=== PATIENT | female | born 1985 | race Caucasian/White ===

== ENCOUNTER 2020-07-06 17:42 | Inpatient (IN) | payer BC ==
[2020-07-06] MEDS ORDERED: LABETALOL 5 MG/ML VIAL MDV IVP PRN ×3 (18:12)
[2020-07-06] MEDS ORDERED: hydrALAZINE HCL 20 MG/ML 1 ML VIAL IVP PRN (18:12)
[2020-07-06 18:35] LABS: Basophils % (A) 0 %; Eosinophils # (A) 0.1 k/uL (0-0.7); Eosinophils % (A) 1 %; HCT 38.2 % (34.0-46.0); HGB 13.3 gm/dL (11.4-16.0); Lymphocytes # (A) 1.9 k/uL (1.0-4.8); Lymphocytes % (A) 20 %; MCH 29.1 pg (25.0-35.0); MCHC 34.9 g/dL (31.0-37.0); MCV 83.5 fL (80.0-100.0); Mean Platelet Volume 8.8; Monocytes # (A) 0.5 k/uL (0-1.0); Monocytes % (A) 5 %; Neutrophils # (A) 6.7 k/uL (1.3-7.7); Neutrophils % (A) 72 %; Platelet Count 199 k/uL (150-450); RBC 4.58 m/uL (3.80-5.40); RDW 13.9 % (11.5-15.5); WBC 9.3 k/uL (3.8-10.6)
[2020-07-06 18:49] LABS: ALT 34 U/L (4-34); AST 38 U/L (14-36); African American GFR (CKD) >90 (>60 ml/min/1.73 sqM); Blood Urea Nitrogen 13 mg/dL (7-17); LDH 414 U/L (313-618); Non-African American GFR(CKD) >90 (>60 ml/min/1.73 sqM); Uric Acid 7.2 mg/dL (3.7-7.4)
[2020-07-06] MEDS ORDERED: CLINDAMYCIN 900 MG in DEXTROSE 5% IN WATER 50 ML IVPB STA ×2 (19:20)
[2020-07-06] MEDS ORDERED: OXYTOCIN 10 UNIT/ML 1 ML VIAL IM PRN (19:20)
[2020-07-06] MEDS ORDERED: TERBUTALINE 1 MG/ML VIAL SQ PRN (19:20)
[2020-07-06] MEDS ORDERED: CARBOPROST TROMETHAMINE 250 MCG/ML 1 ML AMP IM PRN (19:20)
[2020-07-06] MEDS ORDERED: LIDOCAINE 0.5% (PF) 5 MG/ML (50 ML SDV) SQ PRN (19:20)
[2020-07-06] MEDS ORDERED: METHYLERGONOVINE 0.2 MG/ML 1 ML AMP IM PRN (19:20)
[2020-07-06 19:22] LABS: Appearance,Urine Clear (Clear); Bilirubin,Urine Negative (Negative); Blood,Urine Trace (Negative); Color,Urine Light Yellow; Glucose,Urine (UA) Negative (Negative); Ketones,Urine Negative (Negative); Leukocyte Esterase,Urine Negative (Negative); Mucus,Urine Rare /hpf; Nitrite,Urine Negative (Negative); PH, Urine 5.5 (5.0-8.0); Protein,Urine Negative (Negative); Specific Gravity,Urine 1.008 (1.001-1.035); Urobilinogen,Urine <2.0 mg/dL (<2.0); WBC,Urine 1 /hpf (0-5)
[2020-07-06 19:30] LABS: Creatinine,Urine Random 40.4 mg/dL; Protein/Creatinine Ratio,Urine 0.594
--- NOTE | 2020-07-06 19:30 | US ---
EXAMINATION TYPE: US OB >= 14 wk fetus DATE OF EXAM: 07/06/2020 COMPARISON: None CLINICAL HISTORY: vaginal bleeding Vaginal bleeding. . TECHNIQUE: Transabdominal (TA). No TV to be performed per VIOLET Gregg. GESTATIONAL AGE / DATING Physician Established: (35 weeks/4 days) EDC: 08/06/2020 Dates by LMP: Unknown Dates by First Scan: This is first scan at this facility. Dates by Current Scan: (35 weeks/1 day) EDC: 08/09/2020 SURVEY IUP: Single PLACENTA: Posterior PREVIA: No Previa ANTHONY: 17.7 cm Upper limits of normal for our hospital standards. CERVICAL LENGTH (transabdominal: norm > 3.0cm): 3.57 cm Limited visibility. BIOMETRY PRESENTATION: Vertex LIE: Longitudinal BPD: 8.83 cm 35 weeks / 5 days HC: 31.94 cm 36 weeks / 0 days AC: 31.61 cm 35 weeks / 4 days FL: 6.84 cm 35 weeks / 1 day ESTIMATED WEIGHT IN GRAMS: 2693 grams ESTIMATED WEIGHT IN LBS/OZ: 5 lbs. 15 oz. WEIGHT PERCENTAGE BASED ON ESTABLISHED DATES: 46.8% HC/AC: 1.01 Normal FL/AC: 21.65 Normal HEART RATE: 135 bpm RHYTHM: Normal IMPRESSION: The ultrasound gestational age is 35 weeks and 1 day. No complicating process seen.
--- NOTE | 2020-07-06 20:43 | P.HPOB ---
History of Present Illness H&P Date: 07/06/20 Chief Complaint: Contractions, vaginal bleeding This is a 35-year-old female 1 para 0 with an estimated date of confinement of 08/06/2020, estimated gestational age of 35-4/7 weeks, who presented to labor and delivery with complaints of contractions since approximately 7 AM this morning. She stated when she woke up she felt a gush of what her underwear but then she did not have anything further after that. She was at the office today for nonstress test and was feeling some contractions but denied any leaking at that time. She was advised to wear a pad and if her pad was wet, to come to labor and delivery. This evening she noticed some bright red blood when she was wiping and did have some on a pad. She therefore came to labor and delivery for evaluation. She denied any headaches, blurry vision, or epigastric pain. She denies any swelling. course has been uncomplicated up until this point. She was getting nonstress tests for advanced maternal age. Ultrasound done in triage did show vertex presentation with an ANTHONY of 17. Amnisure was positive but there was blood noted on exam. On arrival to triage she had severely elevated blood pressures that were fluctuating up and down. Her initial blood pressure was 183/114. She was given 2 doses of labetalol her protocol in triage. Her blood pressures have come down with the 2 doses at 20 and 40 mg. Labs showed elevated protein to creatinine ratio at 0.59. All other labs are essentially normal other than a very mildly elevated AST. labs: Pap smear-within normal limits GC/Chlamydia/Trichomonas-negative Hepatitis B surface antigen-negative RPR-nonreactive Rubella-nonimmune Blood type-O+ Antibody screen-negative HIV-nonreactive Hemoglobin-12.1 [id number] normal limits MSAFP-negative One hour Glucola-166, 3 hour Glucola-within normal limits Obstetrical history: . Gynecologic history: No history of sexually transmitted diseases Social history: She is . 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 Review of Systems Constitutional: Denies chills, Denies fever Eyes: denies blurred vision, denies pain Ears, nose, mouth and throat: Denies headache, Denies sore throat Cardiovascular: Denies chest pain, Denies shortness of breath Respiratory: Denies cough Gastrointestinal: Reports abdominal pain Genitourinary: Reports pelvic pain, Reports Musculoskeletal: Reports low back pain Integumentary: Denies pruritus, Denies rash Neurological: Denies numbness, Denies weakness Psychiatric: Denies anxiety, Denies depression Past Medical History Past Medical History: No Reported History History of Any Multi-Drug Resistant Organisms: None Reported Additional Past Surgical History / Comment(s): [place] teeth Past Anesthesia/Blood Transfusion Reactions: No Reported Reaction Past Psychological History: No Psychological Hx Reported Smoking Status: Never smoker Past Alcohol Use History: None Reported Past Drug Use History: None Reported - Past Family History Mother Family Medical History: Hyperlipidemia, Hypertension Medications and Allergies Home Medications Medication Instructions Recorded Confirmed Type Pnv No.95/Ferrous Fum/Folic AC 1 tab PO DAILY 07/06/20 07/06/20 History [ Multivitamin Tablet] Allergies Allergy/AdvReac Type Severity Reaction Status Date / Time No Known Allergies Allergy Verified 07/06/20 18:10 Exam Osteopathic Statement: *. No significant issues noted on an osteopathic structural exam other than those noted in the History and Physical/Consult. Vital Signs Temp Pulse Resp BP 07/06/20 19:50 97.0 F L 67 16 150/90 07/06/20 17:42 97.3 F L 71 16 183/114 Intake and Output 07/06/20 07/06/20 07/06/20 06:59 14:59 22:59 Output Total 150 Balance -150 Output: Urine 150 Uretheral (Miles) 150 Other: Weight 92.986 kg HEENT: Within normal limits Heart: Regular rate and rhythm Lungs: Clear to auscultation bilaterally Abdomen: heart tones: Reactive, category 1 Contractions: Every 2-3 minutes Cervix: In triage she was noted to be 1 cm/100%/-2 station with a bulging bag and some bloody show. Currently she is 3-4 cm/100%/-2 station. Artificial rupture of membranes is carried out with clear fluid noted. Extremities: Negative Homans Results Result Diagrams: 07/06/20 18:15 07/06/20 18:15 Abnormal Lab Results - Last 24 Hours (Table) 07/06/20 07/06/20 Range/Units 18:15 18:25 AST 38 H (14-36) U/L Urine Blood Trace H (Negative) Urine Mucus Rare H (None) /hpf Assessment and Plan (1) 35 weeks gestation of Current Visit: Yes Status: Acute Code(s): Z3A.35 - 35 WEEKS GESTATION OF SNOMED Code(s): 04591019 (2) Pre-eclampsia, severe, third trimester Current Visit: Yes Status: Acute Code(s): O14.13 - SEVERE PRE-ECLAMPSIA, THIRD TRIMESTER SNOMED Code(s): 70431485 Plan: Admission for preeclampsia with severe features. Antibiotic prophylaxis for unknown group B streptococcus. Expectant management due to current active labor. Epidural anesthesia for pain control. We'll continue to monitor blood pressures closely and treat as needed. We'll plan to start magnesium sulfate s eizure prophylaxis immediately after delivery unless it is needed prior to delivery so as not to stall labor. Patient is aware that baby will need to go to level I nursery for observation due to prematurity. All her questions were answered. Both her and her are agreeable to this plan.
[2020-07-06] MEDS ORDERED: ROPIVACAINE 100 MG, fentaNYL (PF). 200 MCG in SODIUM CHLORIDE 0.9% 76 ML EPIDURAL ONE (20:52)
[2020-07-06] MEDS ORDERED: CALCIUM GLUCONATE 1 GM/10 ML VIAL IV PRN (21:17)
[2020-07-06] MEDS ORDERED: MAGNESIUM SULFATE GM 6 GM in SODIUM CHLORIDE 0.9% 100 ML IVPB ONE (21:30)
[2020-07-06] MEDS: MAGNESIUM SULFATE-WATER PMX 20 GM in WATER FOR INJECTION 1 500ML.BAG IV SCH (21:55)
[2020-07-07] MEDS ORDERED: CLINDAMYCIN 900 MG in DEXTROSE 5% IN WATER 50 ML IVPB SCH ×2 (03:30)
--- NOTE | 2020-07-07 04:13 | P.PROBDLV ---
Vaginal Delivery Note - . Vaginal Delivery Note: She did receive one further dose of labetalol at 80 mg. She was also started on magnesium sulfate seizure prophylaxis during labor due to labile blood pressures. Once reaching complete, she began pushing. She pushed for approximately 1 hour and 's head came to a crown. With one further push, the infant's head delivered across the perineum in a straight occiput posterior lie. At this point she was instructed to stop pushing. Nuchal cord 3 was doubly clamped and cut and removed around the infant's head. There was also a cord around the shoulder that was reduced. was then given to awaiting nursing staff for evaluation. A viable male infant was noted with scores of 3 at 1 minute 6 at 5 minutes and 7 at 10 minutes. Infant weight is 5 lbs. 13 oz. is taken to level I nursery for evaluation. Uterus contracted fairly well after oxytocin was given and uterine massage was carried out. Her bladder was also drained for 350 mL of clear urine. Inspection of the perineum revealed a second-degree perineal laceration. This area was anesthetized with 1% lidocaine and then sutured with 3-0 and 2-0 Vicryl suture in the usual multilayer fashion. Estimated blood loss is approximately 300 mL's. Mother is in stable condition and infant is in guarded condition in level I nursery. Mother will be continued on magnesium sulfate seizure prophylaxis for approximately 24 hours.
[2020-07-07] MEDS ORDERED: ZOLPIDEM 5 MG TAB PO PRN (04:14)
[2020-07-07] MEDS ORDERED: LANOLIN CREAM 5 GM TUBE TOPICAL PRN (04:14)
[2020-07-07] MEDS ORDERED: diphenhydrAMINE 50 MG CAP PO PRN (04:14)
[2020-07-07] MEDS ORDERED: SIMETHICONE 80 MG CHEWABLE PO PRN (04:14)
[2020-07-07] MEDS ORDERED: diphenhydrAMINE 50 MG/ML 1 ML VIAL IVP PRN ×2 (04:14)
[2020-07-07] MEDS ORDERED: ACETAMINOPHEN TAB 325 MG TAB PO PRN (04:14)
[2020-07-07] MEDS ORDERED: HYDROCORTISONE 2.5% RECTAL CREAM 30 GM TUBE RECTAL PRN (04:14)
[2020-07-07] MEDS ORDERED: OXYTOCIN 30 UNITS/500 ML NS 30 UNIT in SALINE 1 500ML.BAG IV SCH (04:14)
[2020-07-07] MEDS ORDERED: diphenhydrAMINE 25 MG CAP PO PRN (04:14)
[2020-07-07] MEDS ORDERED: BENZOCAINE/MENTHOL SPRAY 1 GM/SPRAY AEROSOL TOPICAL PRN (04:14)
[2020-07-07] MEDS ORDERED: MEASLES-MUMPS-RUBELLA VACC/PF 12,500 UNIT/0.5 ML VIAL SQ ONE (04:14)
[2020-07-07] MEDS: IBUPROFEN 600 MG TAB PO SCH ×3 (04:36→17:16)
[2020-07-07] MEDS: SENNOSIDES-DOCUSATE SODIUM 1 EACH TAB PO SCH ×2 (07:28→19:19)
[2020-07-07] MEDS: PRENATAL VIT-IRON-FOLIC ACID 1 EACH CAP PO SCH (07:29)
--- NOTE | 2020-07-07 07:35 | P.MSEPDOC ---
Presenting Problems - Arrival Data Date of Arrival on Unit: 07/06/20 Time of Arrival on Unit: 19:14 Mode of Transport: Portable - Complaint OB-Reason for Admission/Chief Complaint: Possible Onset of Labor, Vaginal Bleeding Medical History - Information : 1 Para: 0 Term: 0 : 0 Abortions: Spontaneous or Elective: 0 Number of Living Children: 0 - Gestational Age Gestational Age by KUMAR (wks/days): 35 Weeks and 5 Days Review of Systems - Review of Systems Constitutional: No problems Breast: No problems ENT: No problems Cardiovascular: No problems Respiratory: No problems Gastrointestinal: No problems Genitourinary: No problems Musculoskeletal: No problems Neurological: No problems Skin: No problems Vital Signs - Temperature Temperature: 97.3 F Temperature Source: Temporal Artery Scan - Pulse Right Sitting Pulse Rate: 77 Pulse Assessment Method: Automatic Cuff - Respirations Respiratory Rate: 16 Oxygen Delivery Method: Room Air O2 Sat by Pulse Oximetry: 97 - Blood Pressure Right Arm Blood Pressure: 127/71 Blood Pressure Mean: 89 Blood Pressure Source: Automatic Cuff Medical Screen Scoring (Pre) - Cervical Exam Dilation: 1-3 cm = 1 Effacement: More than 50% = 2 Membranes: Intact - Uterine Contractions Frequency: < 36 weeks = 6 Duration: > 40 seconds = 2 - Maternal Vital Signs Maternal Temperature: N/A Maternal Blood Pressure: >159/109 = 8 Signs of Preeclampsia: N/A Maternal Respirations: N/A - Maternal Trauma Maternal Trauma: N/A - Assessment - Baby A Baseline FHR: 125 Heart Rate - NICHD Category: Category I (Normal) = 0 NST: Reactive Position: N/A Station: N/A - Total Score - Baby A Total Score - Baby A: 19 - Total Score - Baby B Total Score - Baby B: 19 - Total Score - Baby C Total Score - Baby C: 19 - Level of Risk - Baby A Level of Risk - Baby A: High (10+) - Level of Risk - Baby B Level of Risk - Baby B: High (10+) - Level of Risk - Baby C Level of Risk - Baby C: High (10+) Physician Notification (Pre) - Physician Notified Physician Notified Date: 07/06/20 Physician Notified Time: 19:14 New Order Received: Yes (admit for labor) Disposition - Disposition OB Disposition: Admit, LDRP Suite I agree with the RN Medical Screening Exam: Yes Case reviewed; plan agreed upon as documented in EMR&OBIX.: Yes Diagnosis: UNSPECIFIED MATERNAL HYPERTENSION, THIRD TRIMESTER
[2020-07-07] MEDS: MAGNESIUM SULFATE-WATER PMX 20 GM in WATER FOR INJECTION 1 500ML.BAG IV SCH ×2 (08:06→18:16)
[2020-07-07] MEDS: LACTATED RINGERS 1,000 ML IV SCH ×3 (08:07→18:29)
[2020-07-07 08:20] LABS: Basophils % (A) 0 %; Eosinophils % (A) 0 %; HCT 35.9 % (34.0-46.0); HGB 12.4 gm/dL (11.4-16.0); Lymphocytes # (A) 1.2 k/uL (1.0-4.8); Lymphocytes % (A) 6 %; MCH 29.5 pg (25.0-35.0); MCHC 34.7 g/dL (31.0-37.0); MCV 85.1 fL (80.0-100.0); Mean Platelet Volume 8.4; Monocytes # (A) 0.5 k/uL (0-1.0); Monocytes % (A) 3 %; Neutrophils % (A) 90 %; Platelet Count 220 k/uL (150-450); RBC 4.22 m/uL (3.80-5.40); RDW 14.1 % (11.5-15.5); WBC 18.9 k/uL (3.8-10.6)
[2020-07-08] MEDS: IBUPROFEN 600 MG TAB PO SCH ×5 (01:53→20:01)
[2020-07-08] MEDS: SENNOSIDES-DOCUSATE SODIUM 1 EACH TAB PO SCH ×2 (08:44→20:02)
--- NOTE | 2020-07-08 08:58 | P.PNOBGVD ---
Subjective - Subjective Principal diagnosis: S/P NVD with pre-eclampsia PPD #1 Interval history: Patient seen and examined. Denies headache, vision she minutes, nausea, vomiting, chest pain, shortness of breath or any calf pain. Her blood pressures are now well controlled this morning off magnesium side will start labetalol 200 mg twice a day Patient reports: Reports appetite normal, Reports voiding normally, Reports pain well controlled, Reports ambulating normally Radiant: doing well Objective - Latest Vital Signs Latest vital signs: Vital Signs Temp Pulse Resp BP Pulse Ox 07/08/20 04:00 125/76 07/08/20 02:23 76 16 131/81 07/08/20 00:00 97.8 F 72 16 133/82 07/07/20 22:00 71 16 129/76 07/07/20 19:39 97.1 F L 67 16 128/81 97 07/07/20 18:19 95.6 F L 71 18 145/88 98 07/07/20 17:14 96.9 F L 70 18 133/80 97 07/07/20 15:59 96.3 F L 72 18 139/85 98 07/07/20 15:08 97.7 F 66 18 143/78 99 07/07/20 14:00 96.6 F L 69 133/81 98 07/07/20 13:00 97.8 F 69 18 133/81 96 07/07/20 12:00 95.6 F L 65 18 127/78 97 07/07/20 11:02 95.0 F L 68 18 131/83 07/07/20 10:01 98.6 F 76 16 131/74 07/07/20 09:10 97.3 F L 76 18 127/76 97 Intake and Output 07/07/20 07/08/20 07/08/20 22:59 06:59 14:59 Intake Total 500 180 Output Total 2250 600 Balance -1750 -420 Intake: Intake, IV Titration 500 180 Amount Lactated Ringers 1,000 ml 180 @ 20 mls/hr IV .Q24H [place] Rx#:[id number] Magnesium Sulfate-Water 500 Pmx 20 gm In Water For Injection 1 500ml.bag @ 2 GM/HR 50 mls/hr IV .Q10H [place] Rx#:[id number] Output: Urine 2250 600 Other: Voiding Method Toilet # Voids 2 2 - Exam Lungs: bilateral: normal Chest: Normal S1, Normal S2 Extremities: Present: normal Abdomen: Present: normal appearance, soft Uterus: Present: normal, firm Assessment and Plan (1) Status post normal vaginal delivery Current Visit: Yes Status: Acute Code(s): WTD7388 - SNOMED Code(s): 350262504 (2) Preeclampsia Current Visit: Yes Status: Acute Code(s): O14.90 - UNSPECIFIED PRE-E CLAMPSIA, UNSPECIFIED TRIMESTER SNOMED Code(s): 828599574 Plan: 1. Labetalol 200 mg twice a day 2. Monitor for signs and symptoms 3. Continue to monitor blood pressure 4. care
[2020-07-08] MEDS: MAGNESIUM SULFATE-WATER PMX 20 GM in WATER FOR INJECTION 1 500ML.BAG IV SCH (09:28)
[2020-07-08] MEDS: PRENATAL VIT-IRON-FOLIC ACID 1 EACH CAP PO SCH (09:35)
[2020-07-08] MEDS: LABETALOL 200 MG TAB PO SCH ×2 (09:35→20:01)
[2020-07-09] MEDS: IBUPROFEN 600 MG TAB PO SCH ×3 (05:11→18:37)
[2020-07-09] MEDS: SENNOSIDES-DOCUSATE SODIUM 1 EACH TAB PO SCH ×2 (08:07→20:02)
[2020-07-09] MEDS: LABETALOL 200 MG TAB PO SCH ×2 (08:07→20:01)
[2020-07-09] MEDS: PRENATAL VIT-IRON-FOLIC ACID 1 EACH CAP PO SCH (09:04)
--- NOTE | 2020-07-09 11:11 | P.PNOBGVD ---
Subjective - Subjective Principal diagnosis: day 2 Interval history: Jyoti is seen and evaluated. She voices no complaints. Her vital signs are currently stable but she did have a blood pressure 166/84 earlier this morning. White blood cell count yesterday is noted to be 18 which is significantly increased over 9 from the previous day. We'll repeat reclamped thick labs and CBC this morning. Will not were LDH or protein creatinine ratio as there will be increasing protein in her urine due to vaginal delivery and blood and LDH where we'll also be elevated due to her delivery. Her AST was noted to be slightly elevated at induction time at 38 is likely not indicative of help as it is low but will repeat a make sure that it has not risen. If labs and blood pressures remained stable through the day, we'll plan discharged home later today. Prescriptions for her pain medication and labetalol have Camilo been forwarded to the pharmacy. Assuming we are able to send her home today, she will see Dr. Yusuf later this week for blood pressure check and verification that she is still doing well. All the questions are answered for her at this time. Heart regular, lungs clear, extremities without pain. Minimal swelling is noted. Deep tendon reflexes are normal. Abdomen is soft uterus is firm below the umbilicus and lochia is reported light. Patient reports: Reports appetite normal [place]: in NICU Objective - Latest Vital Signs Latest vital signs: Vital Signs Temp Pulse Resp BP Pulse Ox 07/09/20 09:06 142/84 07/09/20 08:00 97.7 F 65 18 166/84 98 07/09/20 04:00 98.3 F 80 18 140/70 98 07/08/20 23:23 98.9 F 74 18 122/74 97 07/08/20 20:00 98 F 70 18 132/78 98 07/08/20 16:00 98.2 F 67 16 147/83 99 07/08/20 13:24 66 16 126/81
[2020-07-09 11:58] LABS: ALT 45 U/L (4-34); AST 63 U/L (14-36); African American GFR (CKD) >90 (>60 ml/min/1.73 sqM); Blood Urea Nitrogen 11 mg/dL (7-17); Non-African American GFR(CKD) >90 (>60 ml/min/1.73 sqM)
[2020-07-09 12:06] LABS: Basophils % (A) 0 %; Eosinophils # (A) 0.4 k/uL (0-0.7); Eosinophils % (A) 4 %; HCT 32.7 % (34.0-46.0); HGB 10.8 gm/dL (11.4-16.0); Lymphocytes # (A) 1.8 k/uL (1.0-4.8); Lymphocytes % (A) 19 %; MCH 28.2 pg (25.0-35.0); MCV 85.7 fL (80.0-100.0); Mean Platelet Volume 7.6; Monocytes # (A) 0.3 k/uL (0-1.0); Monocytes % (A) 3 %; Neutrophils # (A) 6.9 k/uL (1.3-7.7); Neutrophils % (A) 73 %; Platelet Count 219 k/uL (150-450); RBC 3.82 m/uL (3.80-5.40); RDW 15.1 % (11.5-15.5); WBC 9.5 k/uL (3.8-10.6)
[2020-07-10] MEDS: IBUPROFEN 600 MG TAB PO SCH ×5 (00:38→20:56)
[2020-07-10 06:47] LABS: Basophils % (A) 0 %; Eosinophils # (A) 0.6 k/uL (0-0.7); Eosinophils % (A) 5 %; HCT 31.4 % (34.0-46.0); HGB 10.8 gm/dL (11.4-16.0); Lymphocytes # (A) 2.4 k/uL (1.0-4.8); Lymphocytes % (A) 24 %; MCH 29.5 pg (25.0-35.0); MCHC 34.4 g/dL (31.0-37.0); MCV 85.5 fL (80.0-100.0); Mean Platelet Volume 7.5; Monocytes # (A) 0.4 k/uL (0-1.0); Monocytes % (A) 4 %; Neutrophils # (A) 6.6 k/uL (1.3-7.7); Neutrophils % (A) 66 %; Platelet Count 229 k/uL (150-450); RBC 3.67 m/uL (3.80-5.40); RDW 14.4 % (11.5-15.5); WBC 10.1 k/uL (3.8-10.6)
[2020-07-10 06:51] LABS: ALT 92 U/L (4-34); AST 99 U/L (14-36); African American GFR (CKD) >90 (>60 ml/min/1.73 sqM); Blood Urea Nitrogen 11 mg/dL (7-17); Non-African American GFR(CKD) >90 (>60 ml/min/1.73 sqM)
[2020-07-10] MEDS: SENNOSIDES-DOCUSATE SODIUM 1 EACH TAB PO SCH ×2 (08:16→20:56)
[2020-07-10] MEDS: LABETALOL 200 MG TAB PO SCH ×2 (08:16→20:56)
--- NOTE | 2020-07-10 10:43 | P.PNOBGVD ---
Subjective - Subjective Principal diagnosis: day 4: Preeclampsia: Elevated liver transaminases Interval history: Jyoti is seen and evaluated. Her blood pressures remain overall stable. She denies any signs or symptoms of preeclampsia no headache, epigastric pain or vision changes. She has minimal to no swelling in her extremities and deep reflexes are +2. She however had repeat liver transaminases today and they were into the 90s which is now double what normal should be and is more concerning at this time. Platelets remained normal. Will plan to keep her again today and continue close observation with repeat labs tomorrow. Once labs stabilized and likely she'll be able to be discharged to home. All the questions are answered for her at this time and otherwise she is stable. Continue current care. Patient reports: Reports appetite normal, Reports voiding normally, Reports pain well controlled, Reports ambulating normally [place]: in NICU Objective - Latest Vital Signs Latest vital signs: Vital Signs Temp Pulse Resp BP Pulse Ox 07/10/20 08:00 98.2 F 69 18 157/93 97 07/10/20 04:00 98.1 F 61 16 134/78 07/10/20 00:00 98.3 F 98 16 136/86 07/09/20 20:00 98.7 F 77 16 156/89 97 07/09/20 16:00 98.5 F 65 16 138/84 97 07/09/20 12:00 97.8 F 65 17 149/88 99 - Exam Lungs: bilateral: normal Chest: Normal S1, Normal S2 Extremities: Present: normal Abdomen: Present: normal appearance, soft Uterus: Present: normal, firm - Labs Labs: Abnormal Lab Results - Last 24 Hours (Table) 07/09/20 07/09/20 07/10/20 Range/Units 11:08 11:08 06:09 RBC 3.67 L (3.80-5.40) m/uL Hgb 10.8 L 10.8 L (11.4-16.0) gm/dL Hct 32.7 L 31.4 L (34.0-46.0) % AST 63 H (14-36) U/L ALT 45 H (4-34) U/L 07/10/20 07/10/20 Range/Units 06:09 06:09 RBC (3.80-5.40) m/uL Hgb (11.4-16.0) gm/dL Hct (34.0-46.0) % AST 99 H (14-36) U/L ALT 92 H (4-34) U/L
[2020-07-10] MEDS: PRENATAL VIT-IRON-FOLIC ACID 1 EACH CAP PO SCH (15:59)
[2020-07-11] MEDS ORDERED: LABETALOL 200 MG TAB PO STA (04:35)
[2020-07-11] MEDS ORDERED: MAGNESIUM SULFATE-WATER PMX 4 GM in WATER FOR INJECTION 1 100ML.BAG IVPB ONE (04:45)
[2020-07-11] MEDS: IBUPROFEN 600 MG TAB PO SCH ×4 (04:58→19:50)
[2020-07-11] MEDS ORDERED: LACTATED RINGERS 1,000 ML IV SCH (05:00)
[2020-07-11] MEDS ORDERED: MAGNESIUM SULFATE-WATER PMX 20 GM in WATER FOR INJECTION 1 500ML.BAG IV SCH (05:04)
--- NOTE | 2020-07-11 05:09 | P.PN ---
Progress Note - Text Progress Note Date: 07/11/20 Jyoti is seen and evaluated this morning. I did receive a phone call at approximately 4:30 in the morning relating that she had 2 blood pressures by a few minutes apart that were 175 over 90s. The nurse also notified me that she had a new pounding headache and that she had been resting in bed and just breast-feeding just prior to symptoms occurrence. Out of the fundus of caution I did restart her IV and gave her 4 g bolus of magnesium sulfate as her sign and symptoms at that time represented a clear change in on what could be severe preeclampsia with elevated liver enzymes now at a level that would qualify for HEELP ROM yesterday morning. She had been completely asymptomatic all throughout the day and I was physically in the hospital and available for evaluation of her throughout the day on Saturday07/10/2020 at no point was notified that there any symptoms in discussing with her this morning she did not have any yesterday at all. After arriving for evaluation is noted that her lungs are clear her deep tendon reflexes are +2 out of 4 there is no peripheral edema and she does not have any epigastric pain nor any visual changes. She relates that her headache is no greater than 3 or 4 out of 10 and the description of pounding that I was told about the phone is more than what she is complaining about currently, and she denies headache any worse than this. She relates that she does have a history of migraine headaches however and that this is not as bad as her migraine headaches so it is difficult for her to say for certain that this is not a more significant headache. We have ordered early delivery of her to her milligrams of labetalol and she is going to take 2 Motrin for headache. I have ordered the labs repeat stat and will see how the patient does in the next hour and await labs. The decision on continuing the mag sulfate will primarily be based on physical findings and labs moving forward. I did inform her that it may very well be that we give her this bolus of the mag sulfate and that with return of normal labs and complete r esolution of her headache and blood pressures that come down there is a chance that we would just discontinue it prior to any significant length of time on the medication. Otherwise on physical exam her heart is regular her abdomen is soft her uterus is firm and lochia is reported light. Assessment day 5 with new onset severe hypertensive numbers as well as headache and need for consideration of worsening of preeclampsia Plan as above
[2020-07-11 05:10] LABS: Basophils # (A) 0.1 k/uL (0-0.2); Basophils % (A) 1 %; Eosinophils # (A) 0.7 k/uL (0-0.7); Eosinophils % (A) 7 %; HCT 32.5 % (34.0-46.0); HGB 11.3 gm/dL (11.4-16.0); Lymphocytes # (A) 2.5 k/uL (1.0-4.8); Lymphocytes % (A) 25 %; MCH 29.6 pg (25.0-35.0); MCHC 34.9 g/dL (31.0-37.0); MCV 84.9 fL (80.0-100.0); Mean Platelet Volume 7.2; Monocytes # (A) 0.4 k/uL (0-1.0); Monocytes % (A) 4 %; Neutrophils # (A) 6.3 k/uL (1.3-7.7); Neutrophils % (A) 63 %; Platelet Count 281 k/uL (150-450); RBC 3.83 m/uL (3.80-5.40); RDW 14.6 % (11.5-15.5)
[2020-07-11 05:55] LABS: ALT 93 U/L (4-34); AST 76 U/L (14-36); African American GFR (CKD) >90 (>60 ml/min/1.73 sqM); LDH 605 U/L (313-618); Non-African American GFR(CKD) >90 (>60 ml/min/1.73 sqM)
--- NOTE | 2020-07-11 06:19 | P.PN ---
Progress Note - Text Progress Note Date: 07/11/20 Jyoti is seen and reevaluated. Her headache is completely resolved and her last blood pressure was normal in the 130s over 80s. We discussed discontinuation of the neck sulfate with her labs showing normal size of the liver enzymes which are now trending down. We'll continue close observational care but as she has no signs or symptoms of severe preeclampsia and I question whether or not her headache was severe preeclampsia based on discussion with her how mild was. All questions are answered for her she is in stable and satisfactory condition at this time.
[2020-07-11] MEDS: SENNOSIDES-DOCUSATE SODIUM 1 EACH TAB PO SCH ×2 (08:04→19:50)
[2020-07-11] MEDS: LABETALOL 200 MG TAB PO SCH ×2 (08:04→16:13)
[2020-07-11] MEDS: PRENATAL VIT-IRON-FOLIC ACID 1 EACH CAP PO SCH (08:04)
[2020-07-12] MEDS: LABETALOL 200 MG TAB PO SCH ×2 (00:18→08:06)
[2020-07-12] MEDS: IBUPROFEN 600 MG TAB PO SCH (04:37)
[2020-07-12 04:47] VITALS: BP 146/90
[2020-07-12] MEDS: SENNOSIDES-DOCUSATE SODIUM 1 EACH TAB PO SCH (08:06)
[2020-07-12 08:11] VITALS: PULSE 72; RESP 16; TEMP 98.2
--- NOTE | 2020-07-12 08:20 | P.DS ---
Providers Date of admission: 07/06/20 19:24 Expected date of discharge: 07/12/20 Attending physician: Elizabeth Yusuf Primary care physician: Stated None - Discharge Diagnosis(es) (1) Status post normal vaginal delivery Current Visit: Yes Status: Acute (2) Preeclampsia Current Visit: Yes Status: Acute Hospital Course: Patient presented with severe preeclampsia and in active labor. She underwent a normal vaginal delivery. Had magnesium sulfate for 24 hours after delivery. She is then placed on labetalol 200 mg twice a day which was not controlling her blood pressure quite an OpSite increase it to 200 mg 3 times a day. This is controlling her blood pressures to be 130 - 150/70-90. Patient continues to deny symptoms. She denies nausea, vomiting, chest pain, sugars of breath, calf pain, headache, vision changes. She'll be discharged home day #5 in stable condition to follow-up with me for blood pressure check in a few days. Plan - Discharge Summary New Discharge Prescriptions: New Ibuprofen [Motrin] 600 mg PO Q6HR PRN #30 tab PRN Reason: Pain Labetalol [Trandate] 200 mg PO Q8H #90 tablet No Action Pnv No.95/Ferrous Fum/Folic AC [ Multivitamin Tablet] 1 tab PO DAILY Discharge Medication List Pnv No.95/Ferrous Fum/Folic AC [ Multivitamin Tablet] 1 tab PO DAILY 07/06/20 [History] Ibuprofen [Motrin] 600 mg PO Q6HR PRN #30 tab 07/09/20 [Rx] Labetalol [Trandate] 200 mg PO Q8H #90 tablet 07/12/20 [Rx] Follow up Appointment(s)/Referral(s): Elizabeth Yusuf DO [Doctor of Osteopathic Medicine] - 07/15/20 Activity/Diet/Wound Care/Special Instructions: Lifting, limit stairs and driving, and pelvic rest. She is aware should she have any headaches, epigastric pain, visual changes, increase in dizziness or instability or other issue sheets report to the emergency room. Otherwise we'll have her follow up with Dr. Yusuf this week for repeat blood pressure check. Call for any high temperatures, heavy bleeding or severe pain Discharge Disposition: HOME SELF-CARE
[2020-07-12] MEDS ORDERED: DIPH,PERTUS(ACELL)TETVAC-LF 0.5 ML VIAL IM ONE (09:25)
[2020-07-12] MEDS: PRENATAL VIT-IRON-FOLIC ACID 1 EACH CAP PO SCH (09:46)
== END 2020-07-12 12:58 | disposition home or self-care (01) | DRG 807 ==
LOC: FBPOP 17:42 → 4FBP 19:24
PROVIDERS: ADMIT Obstetrics & Gynecology; ATTEND Obstetrics & Gynecology
PROC: 10E0XZZ Delivery of Products of Conception, External Approach (ICD-10-PCS; principal; 2020-07-07)
PROC: 0KQM0ZZ Repair Perineum Muscle, Open Approach (ICD-10-PCS; 2020-07-07)
DX: O14.14 Severe pre-eclampsia complicating childbirth (principal); Z37.0 Single live birth; O15.1 Eclampsia complicating labor; O69.81X0 Labor and delivery complicated by cord around neck, without compression, not applicable or unspecified; O70.1 Second degree perineal laceration during delivery; Z3A.35 35 weeks gestation of pregnancy
CPT/HCPCS: 59025; 76805; 81001; 82565; 82570; 83615; 84112; 84156; 84450; 84460; 84520; 84550; 85025; 86850; 86900; 86901; 88307; 90472; 90707; 90715; 96360; 96365; 96375; 99215

== ENCOUNTER → 2023-04-01 | Outpatient (CLI) | payer OTHER ==
--- NOTE | 2023-04-02 09:10 | MM ---
Reason for Exam: Screening (asymptomatic). Baseline mammogram. Patient History: Menarche at age 9. First Full-Term at age 34. Late child-bearing (after 30). Premenopausal. Maternal aunt had breast cancer, age 71. Last menstrual period: 04/01/2023 Risk Values: Bailey 5 year model risk: 0.8%. NCI Lifetime model risk: 14.8%. Prior Study Comparison: Patient's first Mammogram. Tissue Density: The breast tissue is heterogeneously dense. This may lower the sensitivity of mammography. Findings: Analyzed By CAD. Asymmetric densities in both breasts do not persist on 3-D images. Findings compatible with superimposition shadow. No significant mass, suspicious microcalcification, or other discrete abnormality is seen. Overall Assessment: Benign, BI-RAD 2 Management: Screening Mammogram of both breasts in 1 year. . Patient should continue monthly self-breast exams. A clinical breast exam by your physician is recommended on an annual basis. This exam should not preclude additional follow-up of suspicious palpable abnormalities. Note on Bailey scores and lifetime risk: 1. A Bailey score greater than 3% is considered moderate risk. If this is the case, consider specialist referral to assess eligibility for a risk reducing agent. 2. If overall lifetime risk for the development of breast cancer is 20% or higher, the patient may qualify for future screening with alternating mammogram and breast MRI. Electronically signed and approved by: Sada Conteh M.D. Radiologist
== END | disposition home or self-care (01) ==
LOC: RADMAMWWP 07:29
PROVIDERS: ATTEND Family Medicine
DX: Z12.31 Encounter for screening mammogram for malignant neoplasm of breast (principal); Z80.3 Family history of malignant neoplasm of breast
CPT/HCPCS: 77063; 77067

== ENCOUNTER → 2024-05-14 | Outpatient (CLI) | payer OTHER ==
--- NOTE | 2024-05-14 07:53 | MM ---
Reason for Exam: Screening (asymptomatic). Last mammogram was performed 1 year(s) and 2 month(s) ago. Patient History: Menarche at age 9. First Full-Term at age 34. Late child-bearing (after 28). Premenopausal. Maternal aunt had breast cancer, age 71. Last menstrual period: 04/25/2024 Risk Values: Bailey 5 year model risk: 0.9%. NCI Lifetime model risk: 14.7%. Prior Study Comparison: 04/01/2023 Bilateral MG 3D screening mammo w/cad, [facility]. Tissue Density: The breasts are heterogeneously dense, which may obscure small masses. Findings: Analyzed By CAD. There is no suspicious group of microcalcifications or new suspicious mass in either breast. Overall Assessment: Negative, BI-RAD 1 Management: Screening Mammogram of both breasts in 1 year. Patient should continue monthly self-breast exams. A clinical breast exam by your physician is recommended on an annual basis. This exam should not preclude additional follow-up of suspicious palpable abnormalities. Note on Bailey scores and lifetime risk: 1. A Bailey score greater than 3% is considered moderate risk. If this is the case, consider specialist referral to assess eligibility for a risk reducing agent. 2. If overall lifetime risk for the development of breast cancer is 20% or higher, the patient may qualify for future screening with alternating mammogram and breast MRI. [facility], , 05/14/2024 7:50 AM. Electronically signed and approved by: Sada Conteh M.D. Radiologist
== END | disposition home or self-care (01) ==
LOC: RADMAMWWP 07:08
PROVIDERS: ATTEND Family Medicine
DX: Z12.31 Encounter for screening mammogram for malignant neoplasm of breast (principal); R92.333 Mammographic heterogeneous density, bilateral breasts; Z80.3 Family history of malignant neoplasm of breast
CPT/HCPCS: 77063; 77067